=== PATIENT | female | born 1975 | race Caucasian/White ===

== ENCOUNTER → 2018-09-23 | Outpatient (CLI) | payer MEDICAID, OTHER, SELFPAY ==
[~2018-09-23] MED LIST: ACET65TA; ANTI12.5; BENADRYL; CEFT2ADD; HEPARIN; METO10TA2; MOTRIN; NORMAL SALINE; SENN8.6T5; VICO5TAB; promethazine
--- NOTE | 2018-09-27 10:40 | SLEEPCENT ---
DATE OF PROCEDURE: 09/23/2018 ORDERED BY: CRISTIN Irwin Nocturnal polysomnography was performed for the titration of pressure therapy in this patient with obstructive sleep apnea syndrome. For testing a [employer] View full face mask of small size was used. Initial pressure of 12 cm of water was applied to the circuit and the lights were extinguished. 7 hours and 22 minutes of data were reviewed. There were 343 minutes of sleep identified. Sleep latency was prolonged at 45.5 minutes. Rapid eye movement (REM) latency was normal at 78 minutes. Sleep architecture was good with 3 REM cycles. Overall sleep efficiency was 78.6%. The patient's electrocardiogram showed a sinus rhythm with an average heart rate of 78 beats per minute. Electroencephalogram (EEG) showed normal waveforms for awake and sleep. Respiratory events were fully palliated with CPAP at a pressure of 14. Remaining measures of sleep physiology were reasonably normal. IMPRESSION: Obstructive sleep apnea syndrome (G47.33). RECOMMENDATIONS: Nightly use of pressure therapy 14 cm of water.
== END ==
LOC: M SLEEP 19:23
PROVIDERS: ATTEND Nurse Practitioner Family
DX: G47.33 Obstructive sleep apnea (adult) (pediatric) (principal)

== ENCOUNTER 2024-03-28 21:36 | Inpatient (IN) | payer OTHER, SELFPAY ==
[~2024-03-28] VITALS: Ht 170.2 cm; Wt 138.3 kg
[2024-03-28 22:41] LABS: BASO # 0.1 10^3/uL (0.0-0.2); BASO % 0.3 % (0.0-1.0); EOS # 0.1 10^3/uL (0.0-0.5); EOS % 0.3 % (0.0-3.0); HEMATOCRIT 38.8 % (36.0-47.0); HEMOGLOBIN 13.5 g/dl (12.0-15.5); LYMPH # 1.7 10^3/uL (1.5-5.0); LYMPH % 10.5 % (24.0-44.0); MEAN CORPUSCULAR HGB CONC 34.8 g/dl (32.0-36.5); MEAN CORPUSCULAR VOLUME 86.2 fl (80.0-96.0); MONO # 1.4 10^3/uL (0.0-0.8); MONO % 8.7 % (2.0-8.0); NEUTROPHILS # 12.6 10^3/uL (1.5-8.5); NEUTROPHILS % 79.8 % (36.0-66.0); PLATELET COUNT, AUTOMATED 295 10^3/uL (150-450); WHITE BLOOD COUNT 15.9 10^3/uL (4.0-10.0)
[2024-03-28 23:11] LABS: BLOOD UREA NITROGEN 19 MG/DL (9-23); CALCIUM LEVEL 9.7 MG/DL (8.5-10.1); CARBON DIOXIDE LEVEL 22 MMOL/L (20-31); CHLORIDE LEVEL 109 MMOL/L (98-107); GLOMERULAR FILTRATION RATE > 60.0 (>58); GLUCOSE, FASTING 121 MG/DL (60-100); POTASSIUM SERUM 4.2 MMOL/L (3.5-5.1); SODIUM LEVEL 141 MMOL/L (136-145)
[2024-03-29] MEDS: ONDANSETRON 4MG 2ML VIAL IV ONE (03:01)
[2024-03-29] MEDS: MORPHINE 4 MG/ML 1ML VIAL IV PRN (03:02)
[2024-03-29] MEDS ORDERED: ISOVUE-370 76% 100ML VIAL As Ordered ONE (03:19)
[2024-03-29 04:08] LABS: LIPASE 51 U/L (12-53)
[2024-03-29 04:11] LABS: ALBUMIN 3.7 G/DL (3.2-5.2); ALKALINE PHOSPHATASE 80 U/L (35-104); ALT/SGPT 23 U/L (7.0-40); AST/SGOT 15 U/L (<34); BILIRUBIN,DIRECT 0.1 MG/DL (<0.4); BILIRUBIN,TOTAL 0.5 MG/DL (0.3-1.2); TOTAL PROTEIN 7.3 G/DL (5.7-8.2)
[2024-03-29] MEDS: KETOROLAC 30 MG/ML 1ML VIAL IV ONE ×2 (05:35→11:12)
[2024-03-29] MEDS ORDERED: NORE1TAB94 PO (06:37)
[2024-03-29] MEDS ORDERED: OMEP-173 PO (06:37)
[2024-03-29] MEDS ORDERED: ZOLO100T PO (06:37)
[2024-03-29] MEDS ORDERED: IBUP-1720 PO (06:37)
[2024-03-29] MEDS: PIPERACILLIN/TAZOBACTAM SOD 3.375 GM in DEXTROSE 5% (D5W) ADV/MINI-BAG 50 ML IV ONE (06:39)
[2024-03-29] MEDS ORDERED: HOME MED LIST COMPLETE! XX SCH (06:40)
[2024-03-29 08:20] LABS: BASO % 0.3 % (0.0-1.0); EOS % 0.1 % (0.0-3.0); HEMATOCRIT 38.4 % (36.0-47.0); LYMPH # 1.2 10^3/uL (1.5-5.0); LYMPH % 7.8 % (24.0-44.0); MEAN CORPUSCULAR HEMOGLOBIN 29.8 pg (27.0-33.0); MEAN CORPUSCULAR HGB CONC 33.9 g/dl (32.0-36.5); MEAN CORPUSCULAR VOLUME 88.1 fl (80.0-96.0); MONO # 1.6 10^3/uL (0.0-0.8); MONO % 10.4 % (2.0-8.0); NEUTROPHILS # 12.6 10^3/uL (1.5-8.5); PLATELET COUNT, AUTOMATED 278 10^3/uL (150-450); RED BLOOD COUNT 4.36 10^6/uL (4.00-5.40); WHITE BLOOD COUNT 15.6 10^3/uL (4.0-10.0)
[2024-03-29 08:46] LABS: ALBUMIN 3.7 G/DL (3.2-5.2); ALKALINE PHOSPHATASE 81 U/L (35-104); ALT/SGPT 22 U/L (7.0-40); AST/SGOT 14 U/L (<34); BILIRUBIN,TOTAL 0.9 MG/DL (0.3-1.2); BLOOD UREA NITROGEN 17 MG/DL (9-23); CALCIUM LEVEL 9.8 MG/DL (8.5-10.1); CARBON DIOXIDE LEVEL 24 MMOL/L (20-31); CHLORIDE LEVEL 107 MMOL/L (98-107); CREATININE FOR GFR 0.81 MG/DL (0.55-1.30); GLOMERULAR FILTRATION RATE > 60.0 (>58); GLUCOSE, FASTING 139 MG/DL (60-100); POTASSIUM SERUM 4.2 MMOL/L (3.5-5.1); SODIUM LEVEL 140 MMOL/L (136-145); TOTAL PROTEIN 7.3 G/DL (5.7-8.2)
[2024-03-29 09:43] LABS: HCG, SERUM QUALITATIVE NEGATIVE (NEGATIVE)
[2024-03-29] MEDS: NS (Normal Saline) 0.9% 1,000 ML IV SCH (09:45)
[2024-03-29 10:30] LABS: INR 1.03; PROTHROMBIN TIME 13.8 SECONDS (12.5-14.5)
[2024-03-29] MEDS: PANTOPRAZOLE 40MG VIAL IV SCH (12:00)
[2024-03-29] MEDS: PIPERACILLIN/TAZOBACTAM SOD 3.375 GM in DEXTROSE 5% (D5W) ADV/MINI-BAG 50 ML IV SCH (13:00)
[2024-03-29] MEDS ORDERED: HYDROMORPHONE HCL 0.5 MG/ 0.5 ML SYRINGE IV PRN ×2 (13:10→17:50)
[2024-03-29] MEDS ORDERED: diphenhydrAMINE 50MG/ML VIAL IV PRN (13:10)
[2024-03-29] MEDS ORDERED: oxyCODONE 5MG TAB PO PRN ×2 (13:10→17:50)
[2024-03-29] MEDS ORDERED: ONDANSETRON 4MG 2ML VIAL IV PRN ×2 (13:10→17:50)
[2024-03-29] MEDS ORDERED: MORPHINE 2 MG/ML 1ML VIAL IV PRN (13:10)
[2024-03-29] MEDS ORDERED: fentaNYL 100 MCG/2 ML INJECTION IV PRN ×2 (13:10→17:50)
[2024-03-29] MEDS ORDERED: ROCURONIUM BROMIDE 50MG/5ML VIAL As Ordered ONE (13:37)
[2024-03-29] MEDS ORDERED: ACETAMINOPHEN 1000MG/100ML IV BAG As Ordered ONE (13:37)
[2024-03-29] MEDS ORDERED: propofoL 200 MG/20 ML VIAL As Ordered ONE (13:37)
[2024-03-29] MEDS ORDERED: LIDOCAINE 2% INJ 100 MG/5 ML SYRINGE As Ordered ONE (13:37)
[2024-03-29] MEDS ORDERED: MIDAZOLAM INJ 2MG/2ML VIAL As Ordered ONE (13:37)
[2024-03-29] MEDS ORDERED: ONDANSETRON 4MG 2ML VIAL As Ordered ONE (13:37)
[2024-03-29] MEDS ORDERED: fentaNYL 100 MCG/2 ML INJECTION As Ordered ONE (13:38)
[2024-03-29] MEDS ORDERED: LIDOCAINE 2% 100MG/5ML SDV (FOR ANES.) As Ordered ONE (13:42)
[2024-03-29] MEDS ORDERED: SUGAMMADEX SODIUM 500 MG/5 ML VIAL (BRIDION) As Ordered ONE (13:43)
[2024-03-29] MEDS: INDOCYANINE GREEN 25MG VIAL (IC-GREEN) As Ordered ONE (14:35)
[2024-03-29] MEDS: ZOSYN 3.375GM VIAL As Ordered ONE (14:50)
[2024-03-29] MEDS ORDERED: KETOROLAC 60MG 2ML VIAL As Ordered ONE (15:36)
[2024-03-29] MEDS ORDERED: LABETALOL 100MG/20ML VIAL As Ordered ONE (15:55)
[2024-03-29] MEDS ORDERED: LACRILUBE (AKWA TEARS) OPHTH OINT 3.5GM As Ordered ONE (17:48)
[2024-03-29] MEDS: LIDOCAINE 1% SDV 30ML VIAL As Ordered ONE (17:50)
[2024-03-29 18:47] VITALS: BP 138/75; TEMP 98.1; O2SAT 99
[2024-03-29 19:14] VITALS: BP 132/75; TEMP 98.1; O2SAT 98
[2024-03-29 20:00] VITALS: BP 107/64; TEMP 98.8; O2SAT 98
[2024-03-29] MEDS: ACETAMINOPHEN 325 MG TAB PO PRN (20:13)
[2024-03-29 21:00] VITALS: O2SAT 98
[2024-03-29 21:30] VITALS: BP 106/64; TEMP 98.8; O2SAT 98
[2024-03-29 23:58] VITALS: BP 124/66; TEMP 98.4; O2SAT 99
[2024-03-30 02:30] VITALS: O2SAT 96
[2024-03-30 04:55] VITALS: BP 123/82; TEMP 98.8; O2SAT 98
[2024-03-30] MEDS: MORPHINE 2 MG/ML 1ML VIAL IV PRN (06:05)
[2024-03-30 06:43] LABS: HEMATOCRIT 34.4 % (36.0-47.0); HEMOGLOBIN 11.5 g/dl (12.0-15.5); MEAN CORPUSCULAR HEMOGLOBIN 30.4 pg (27.0-33.0); MEAN CORPUSCULAR HGB CONC 33.4 g/dl (32.0-36.5); PLATELET COUNT, AUTOMATED 239 10^3/uL (150-450); RED BLOOD COUNT 3.78 10^6/uL (4.00-5.40); WHITE BLOOD COUNT 13.2 10^3/uL (4.0-10.0)
[2024-03-30 08:12] LABS: ALBUMIN 2.8 G/DL (3.2-5.2); ALKALINE PHOSPHATASE 130 U/L (35-104); ALT/SGPT 115 U/L (7.0-40); AST/SGOT 104 U/L (<34); BILIRUBIN,TOTAL 1.2 MG/DL (0.3-1.2); BLOOD UREA NITROGEN 15 MG/DL (9-23); CALCIUM LEVEL 8.8 MG/DL (8.5-10.1); CARBON DIOXIDE LEVEL 23 MMOL/L (20-31); CHLORIDE LEVEL 110 MMOL/L (98-107); CREATININE FOR GFR 0.82 MG/DL (0.55-1.30); GLOMERULAR FILTRATION RATE > 60.0 (>58); GLUCOSE, FASTING 137 MG/DL (60-100); POTASSIUM SERUM 4.2 MMOL/L (3.5-5.1); SODIUM LEVEL 142 MMOL/L (136-145); TOTAL PROTEIN 6.4 G/DL (5.7-8.2)
[2024-03-30 08:33] VITALS: BP 136/84; TEMP 98.6; O2SAT 97
[2024-03-30] MEDS: PERCOCET 5MG/325MG TAB PO PRN (08:47)
[2024-03-30] MEDS: KETOROLAC 30 MG/ML 1ML VIAL IV ONE (10:28)
[2024-03-30] MEDS ORDERED: oxyCODONE 5MG TAB PO PRN (10:40)
[2024-03-30 12:12] VITALS: BP 110/77; TEMP 98.9; O2SAT 94
[2024-03-30] MEDS: oxyCODONE 5MG TAB PO PRN (12:32)
[2024-03-30 16:30] VITALS: TEMP 98.4
[2024-03-30] MEDS: KETOROLAC 30 MG/ML 1ML VIAL IV PRN (17:23)
[2024-03-30] MEDS: ONDANSETRON 4MG 2ML VIAL IV PRN (18:10)
[2024-03-30 20:39] VITALS: BP 116/78; TEMP 98.3; O2SAT 100
[2024-03-31 03:57] VITALS: BP 117/65; TEMP 98.6; O2SAT 100
[2024-03-31 06:07] LABS: BASO % 0.5 % (0.0-1.0); EOS # 0.1 10^3/uL (0.0-0.5); EOS % 1.2 % (0.0-3.0); HEMOGLOBIN 11.3 g/dl (12.0-15.5); LYMPH # 1.9 10^3/uL (1.5-5.0); LYMPH % 25.1 % (24.0-44.0); MEAN CORPUSCULAR HEMOGLOBIN 29.7 pg (27.0-33.0); MEAN CORPUSCULAR HGB CONC 32.3 g/dl (32.0-36.5); MEAN CORPUSCULAR VOLUME 92.1 fl (80.0-96.0); MONO # 0.7 10^3/uL (0.0-0.8); MONO % 8.9 % (2.0-8.0); NEUTROPHILS # 4.9 10^3/uL (1.5-8.5); PLATELET COUNT, AUTOMATED 250 10^3/uL (150-450); WHITE BLOOD COUNT 7.7 10^3/uL (4.0-10.0)
[2024-03-31 06:27] LABS: ALBUMIN 2.7 G/DL (3.2-5.2); ALKALINE PHOSPHATASE 148 U/L (35-104); ALT/SGPT 126 U/L (7.0-40); AST/SGOT 71 U/L (<34); BILIRUBIN,TOTAL 0.6 MG/DL (0.3-1.2); BLOOD UREA NITROGEN 15 MG/DL (9-23); CALCIUM LEVEL 9.7 MG/DL (8.5-10.1); CARBON DIOXIDE LEVEL 25 MMOL/L (20-31); CHLORIDE LEVEL 111 MMOL/L (98-107); CREATININE FOR GFR 0.85 MG/DL (0.55-1.30); GLOMERULAR FILTRATION RATE > 60.0 (>58); GLUCOSE, FASTING 101 MG/DL (60-100); POTASSIUM SERUM 4.3 MMOL/L (3.5-5.1); SODIUM LEVEL 144 MMOL/L (136-145); TOTAL PROTEIN 6.6 G/DL (5.7-8.2)
[2024-03-31] MEDS ORDERED: OXYC-517 PO ×2 (10:33→10:49)
[2024-03-31] MEDS ORDERED: METR-265 PO ×2 (10:33→10:49)
[2024-03-31] MEDS ORDERED: CIPR-249 PO ×2 (10:33→10:49)
[2024-03-31] MEDS ORDERED: COLA100C5 PO ×2 (10:33→10:49)
[2024-03-31 11:30] VITALS: BP 139/75; TEMP 97.3; O2SAT 97
== END 2024-03-31 11:37 | disposition home or self-care (01) | DRG 418 ==
LOC: M ED 21:36 → M ED INP 03-29 09:42 → M MSPAV 03-29 18:45
PROVIDERS: ADMIT Internal Medicine; ATTEND Internal Medicine
PROC: 8E0W4CZ Robotic Assisted Procedure of Trunk Region, Percutaneous Endoscopic Approach (ICD-10-PCS; 2024-03-29)
PROC: 0FT44ZZ Resection of Gallbladder, Percutaneous Endoscopic Approach (ICD-10-PCS; principal; 2024-03-29 13:45)
DX: K80.00 Calculus of gallbladder with acute cholecystitis without obstruction (principal); Z68.42 Body mass index [BMI] 45.0-49.9, adult; E66.01 Morbid (severe) obesity due to excess calories; K21.9 Gastro-esophageal reflux disease without esophagitis; F41.9 Anxiety disorder, unspecified; F32.A Depression, unspecified; Z79.899 Other long term (current) drug therapy; K76.0 Fatty (change of) liver, not elsewhere classified